=== PATIENT | female | born 1980 ===

== ENCOUNTER → 2019-06-23 | Outpatient (CLI) | payer BC | LOC: HYPER 06:56 | DX: T85.848S Pain due to other internal prosthetic devices, implants and grafts, sequela (principal); N64.89 Other specified disorders of breast; N64.4 Mastodynia; M19.90 Unspecified osteoarthritis, unspecified site; G89.18 Other acute postprocedural pain; F41.9 Anxiety disorder, unspecified; Z90.710 Acquired absence of both cervix and uterus; Y83.2 Surgical operation with anastomosis, bypass or graft as the cause of abnormal reaction of the patient, or of later complication, without mention of misadventure at the time of the procedure; Y82.8 Other medical devices associated with adverse incidents ==